=== PATIENT | male | born 1980 | race African-American/Black ===

== ENCOUNTER 2018-09-22 20:17 | Emergency (ER) | payer OTHER ==
--- NOTE | 2018-09-22 20:42 | ERPHSYRPT ---
- History of Present Illness Time Seen by Provider: 09/22/18 20:39 Historian: patient, family Exam Limitations: no limitations Patient Subjective Stated Complaint: Dizzness Triage Nursing Assessment: Patient ambulated back to ED and transferred self to bed. Patient A+O X 3. Patient's skin warm and dry. 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 Patient states he just doesn't feel well. Patient denies pain or discomfort. Pupils PERRL. Lungs clear a/p ruddy. Heart tones audible. Patient complains of nausea, but denies vomiting. Physician History: pt has epigastric distress and dizziness from no cause today and feels bad with nausea - has elevated ST which is likely early repol , but concerning with history; no trauma , no prior CAD; Timing/Duration: today Activities at Onset: none Location: substernal, epigastric Chest Pain Radiation: no radiation Severity of Pain-Max: moderate Severity of Pain-Current: moderate Modifying Factors: Improves With: nothing Associated Symptoms: nausea, vomiting, heartburn Prior Chest Pain/Cardiac Workup: no prior chest pain Nitro Today/Relief: 0.4 mg x 1, provided by ED Aspirin Treatment Today: 81 mg x 4 Allergies/Adverse Reactions: No Known Drug Allergies Allergy (Verified 09/22/18 20:22) Home Medications: No Home Meds [No Home Meds] 1 [facility]I 04/03/14 [History] Hx Tetanus, Diphtheria Vaccination/Date Given: No Hx Influenza Vaccination/Date Given: No Hx Pneumococcal Vaccination/Date Given: No Immunizations Up to Date: Yes - Review of Systems Constitutional: No Fever, No Chills Eyes: No Symptoms Ears, Nose, & Throat: No Symptoms Respiratory: No Cough, No Dyspnea Cardiac: Chest Pain, No Edema, No Syncope Abdominal/Gastrointestinal: Nausea, No Abdominal Pain, No Vomiting, No Diarrhea Genitourinary Symptoms: No Dysuria Musculoskeletal: No Back Pain, No Neck Pain Skin: No Rash Neurological: No Dizziness, No Focal Weakness, No Sensory Changes Psychological: No Symptoms Endocrine: No Symptoms All Other Systems: Reviewed and Negative - Past Medical History Pertinent Past Medical History: No Neurological History: No Pertinent History ENT History: No Pertinent History Cardiac History: No Pertinent History Respiratory History: No Pertinent History Endocrine Medical History: No Pertinent History Musculoskeletal History: No Pertinent History GI Medical History: No Pertinent History History: No Pertinent History Psycho-Social History: No Pertinent History Male Reproductive Disorders: No Pertinent History Other Medical History: toothaches - Past Surgical History Past Surgical History: No Neuro Surgical History: No Pertinent History Cardiac: No Pertinent History Respiratory: No Pertinent History Gastrointestinal: No Pertinent History Genitourinary: No Pertinent History Musculoskeletal: No Pertinent History Male Surgical History: No Pertinent History - Social History Smoking Status: Current every day smoker How long have you smoked: years Exposure to second hand smoke: Yes Drug Use: marijuana Patient Lives Alone: No - Nursing Vital Signs Nursing Vital Signs: Initial Vital Signs Temperature 98.2 F 09/22/18 20:23 Pulse Rate 64 09/22/18 20:23 Respiratory Rate 18 09/22/18 20:23 Blood Pressure 143/95 09/22/18 20:23 O2 Sat by Pulse Oximetry 100 09/22/18 20:23 Pain Scale Pain Intensity 0 - Physical Exam General Appearance: no apparent distress, alert Eye Exam: PERRL/EOMI, eyes nml inspection Ears, Nose, Throat Exam: normal ENT inspection, moist mucous membranes Neck Exam: normal inspection, non-tender, supple, full range of motion Respiratory Exam: normal breath sounds, lungs clear, No respiratory distress Cardiovascular Exam: regular rate/rhythm, normal heart sounds Gastrointestinal/Abdomen Exam: soft, No tenderness, No mass Back Exam: normal inspection, No CVA tenderness, No vertebral tenderness Extremity Exam: normal inspection, normal range of motion Neurologic Exam: alert, oriented x 3, cooperative, normal mood/affect, sensation nml, No motor deficits Skin Exam: normal color, warm, dry SpO2: 100 - Course Nursing assessment & vital signs reviewed: Yes EKG Interpreted by Me: Sinus Rhythm, NORMAL AXIS, Non-specific ST Changes Ordered Tests: Active Orders 24 hr Category Date Time Status Geodetic Advisor STAT Care 09/22/18 20:44 Active EKG-ER Only STAT Care 09/22/18 20:43 Active IV Insertion STAT Care 09/22/18 20:43 Active Pulse Oximetry (ED) STAT Care 09/22/18 20:43 Active CHEST 1 VIEW (PORTABLE) Stat Exams 09/22/18 20:44 Taken CHEST WITH CONTRAST [CT] Stat Exams 09/22/18 21:30 Ordered AMYLASE Stat Lab 09/22/18 21:11 Completed CBC W DIFF Stat Lab 09/22/18 21:11 Completed CMP Stat Lab 09/22/18 21:11 Completed D-DIMER QUANTITATION Stat Lab 09/22/18 21:11 Completed LIPASE Stat Lab 09/22/18 21:11 Completed Lactic Acid Stat Lab 09/22/18 21:13 Completed Manual Differential NC Stat Lab 09/22/18 21:11 Completed NT PRO BNP Stat Lab 09/22/18 21:11 Completed TROPONIN Q3H Lab 09/22/18 21:11 Received TROPONIN Q3H Lab 09/22/18 23:45 Ordered TROPONIN Q3H Lab 09/23/18 02:45 Ordered TROPONIN Q3H Lab 09/23/18 05:45 Ordered TROPONIN Q3H Lab 09/23/18 08:45 Ordered UA W/RFX UR CULTURE Stat Lab 09/22/18 20:43 Uncollected Medication Summary Generic Name Dose Route Start Last Admin Trade Name Freq PRN Reason Stop Dose Admin Sodium Chloride 1,000 mls @ 100 mls/hr 09/22/18 20:45 09/22/18 20:57 Sodium Chloride 0.9% 1000 Ml IV 10/22/18 20:44 100 mls/hr .Q10H KEENA Administration Discontinued Medications Generic Name Dose Route Start Last Admin Trade Name Freq PRN Reason Stop Dose Admin Aspirin 324 mg 09/22/18 20:43 09/22/18 20:54 Baby Aspirin 81 Mg Chew PO 09/22/18 20:44 324 mg STAT ONE Administration Aspirin Confirm 09/22/18 20:53 Baby Aspirin 81 Mg Chew Administered 09/22/18 20:54 Dose 324 mg .ROUTE .STK-MED ONE Nitroglycerin 0.4 mg 09/22/18 20:43 09/22/18 20:55 Nitrostat 0.4 Mg (Ed) SL 09/22/18 20:44 0.4 mg STAT ONE Administration Nitroglycerin Confirm 09/22/18 20:53 Nitrostat 0.4 Mg (Ed) Administered 09/22/18 20:54 Dose 0.4 mg SL .STK-MED ONE Ondansetron HCl 4 mg 09/22/18 20:47 09/22/18 20:55 Zofran 4 Mg/2 Ml Vial IV 09/22/18 20:48 4 mg STAT ONE Administration Ondansetron HCl Confirm 09/22/18 20:53 Zofran 4 Mg/2 Ml Vial Administered 09/22/18 20:54 Dose 4 mg .ROUTE .STK-MED ONE Lab/Rad Data: Laboratory Result Diagrams 09/22/18 21:11 09/22/18 21:11 Laboratory Results 09/22/18 09/22/18 09/22/18 Range/Units 21:13 21:11 21:11 WBC (4.0-10.5) K/mm3 RBC (4.1-5.6) M/mm3 Hgb (12.5-18.0) gm/dl Hct (42-50) % MCV (78-100) fl MCH (26-32) pg MCHC (32-36) g/dl RDW (11.5-14.0) % Plt Count (150-450) K/mm3 MPV (6-9.5) fl D-Dimer 897 H* (215-500) ng/mL Sodium 139 (137-145) mmol/L Potassium 4.1 (3.5-5.1) mmol/L Chloride 102 (98-107) mmol/L Carbon Dioxide 29 (22-30) mmol/L Anion Gap 12.3 (5-15) MEQ/L BUN 11 (9-20) mg/dL Creatinine 0.82 (0.66-1.25) mg/dL Estimated GFR > 60.0 ML/MIN Glucose 85 (74-106) mg/dL Lactic Acid 1.2 (0.4-2.0) Calcium 8.7 (8.4-10.2) mg/dL Total Bilirubin 0.60 (0.2-1.3) mg/dL AST 479 H (17-59) U/L ALT 386 H (0-50) U/L Alkaline Phosphatase 140 H (38-126) U/L NT-Pro-B Natriuret Pep 41.2 (0-450) pg/mL Serum Total Protein 7.7 (6.3-8.2) g/dL Albumin 4.0 (3.5-5.0) g/dL Amylase 97 (30-110) U/L Lipase 61 (23-300) U/L 09/22/18 Range/Units 21:11 WBC 4.5 (4.0-10.5) K/mm3 RBC 4.95 (4.1-5.6) M/mm3 Hgb 14.6 (12.5-18.0) gm/dl Hct 43.4 (42-50) % MCV 87.7 (78-100) fl MCH 29.5 (26-32) pg MCHC 33.6 (32-36) g/dl RDW 13.4 (11.5-14.0) % Plt Count 246 (150-450) K/mm3 MPV 9.9 H (6-9.5) fl D-Dimer (215-500) ng/mL Sodium (137-145) mmol/L Potassium (3.5-5.1) mmol/L Chloride (98-107) mmol/L Carbon Dioxide (22-30) mmol/L Anion Gap (5-15) MEQ/L BUN (9-20) mg/dL Creatinine (0.66-1.25) mg/dL Estimated GFR ML/MIN Glucose (74-106) mg/dL Lactic Acid (0.4-2.0) Calcium (8.4-10.2) mg/dL Total Bilirubin (0.2-1.3) mg/dL AST (17-59) U/L ALT (0-50) U/L Alkaline Phosphatase (38-126) U/L NT-Pro-B Natriuret Pep (0-450) pg/mL Serum Total Protein (6.3-8.2) g/dL Albumin (3.5-5.0) g/dL Amylase (30-110) U/L Lipase (23-300) U/L - Progress Progress: improved, re-examined Air Movement: good Progress Note: 09/22/18 20:52 symptoms improved after 1 nitro 09/22/18 21:[address] Goins at [facility] and sent EKG for his review adn he agrees appears most consistnet with early repol at this time. 09/22/18 21:44 trop turned positive adn discussed with [facility] and they accept in transfer Blood Culture(s) Obtained: No Antibiotics given: No Counseled pt/family regarding: lab results, diagnosis, need for follow-up, rad results - Departure Departure Disposition: Transfer Clinical Impression: chest pain with elevated trop and d dime Condition: Good Critical Care Time: Yes Critical Care Time(excluding separately billable procedures): 30-74 minutes ( consult to solar installer technician for st seg review , nitro and cardiac transport) Referrals: ANDREINA ZARAGOZA [ACTIVE STAFF] -
[2018-09-22] MEDS ORDERED: BABY ASPIRIN 81 MG CHEW ONE (20:53)
[2018-09-22] MEDS ORDERED: Zofran 4 MG/2 ML VIAL ONE (20:53)
[2018-09-22] MEDS ORDERED: Sodium Chloride 0.9% 1000 ML 1,000 ML ONE (20:53)
[2018-09-22] MEDS ORDERED: Nitrostat 0.4 MG (ED) SL ONE (20:53)
[2018-09-22] MEDS: BABY ASPIRIN 81 MG CHEW PO ONE (20:54)
[2018-09-22] MEDS: Zofran 4 MG/2 ML VIAL IV ONE (20:55)
[2018-09-22] MEDS: Nitrostat 0.4 MG (ED) SL ONE (20:55)
[2018-09-22 20:57] LABS: Hematocrit 43.4 % (42-50); Hemoglobin 14.6 gm/dl (12.5-18.0); Mean Cell Volume 87.7 fl (78-100); Mean Corpuscular Hemoglobin 29.5 pg (26-32); Mean Corpuscular Hgb Concent. 33.6 g/dl (32-36); Mean Platelet Volume 9.9 fl (6-9.5); Platelet Count 246 K/mm3 (150-450); Red Blood Count 4.95 M/mm3 (4.1-5.6); Red Cell Distribution Width 13.4 % (11.5-14.0); White Blood Count 4.5 K/mm3 (4.0-10.5)
[2018-09-22] MEDS: Sodium Chloride 0.9% 1000 ML 1,000 ML IV SCH (20:57)
[2018-09-22 21:29] LABS: ALKALINE PHOSPHATASE 140 U/L (38-126); AMYLASE 97 U/L (30-110); ANION GAP 12.3 MEQ/L (5-15); BLOOD UREA NITROGEN 11 mg/dL (9-20); CHLORIDE 102 mmol/L (98-107); Calcium 8.7 mg/dL (8.4-10.2); Carbon Dioxide 29 mmol/L (22-30); Creatinine 1 0.82 mg/dL (0.66-1.25); Glucose 85 mg/dL (74-106); LIPASE 61 U/L (23-300); NT PRO BNP 41.2 pg/mL (0-450); Potassium 4.1 mmol/L (3.5-5.1); SGOT/AST 479 U/L (17-59); SGPT/ALT 386 U/L (0-50); SODIUM 139 mmol/L (137-145); Total Protein 7.7 g/dL (6.3-8.2)
[2018-09-22 21:42] VITALS: BP 130/76; PULSE 67
[2018-09-22 21:45] VITALS: O2SAT 100
[2018-09-23 02:08] LABS: Eosinophil 1 % (0.00-3.0); Lymphocytes 37 % (24-44); Monocyte 11 % (0.0-12.0); Neutrophils 51 % (36.-66.); Platelet Estimate NORMAL (NORMAL); Total Cells Counted 100
--- NOTE | 2018-09-23 07:59 | XRAY ---
Indication: Chest pain. Comparison: December 15, 2008. Portable apical lordotic chest again demonstrates normal heart, lungs, and bony thorax.
== END 2018-09-22 22:34 | disposition short-term general hospital (02) ==
LOC: ED 20:17
DX: R07.9 Chest pain, unspecified (principal); R74.8 Abnormal levels of other serum enzymes
CPT/HCPCS: 36000; 36415; 71045; 80053; 82150; 83605; 83690; 83880; 84484; 85025; 85379; 93005; 93041; 96360; 96374; 99285; J2405; A9270-GY

== ENCOUNTER 2019-01-29 17:58 | Emergency (ER) | payer MEDICAID, OTHER ==
[2019-01-29] MEDS ORDERED: TORAdol 30 mg Injection IM ONE (18:14)
[2019-01-29] MEDS ORDERED: TORAdol 30 mg Injection ONE (18:15)
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
[2019-01-29] MEDS ORDERED: BACIGUENT PACKET TP ONE (19:26)
[2019-01-29 19:38] VITALS: BP 149/98; PULSE 87; O2SAT 98
--- NOTE | 2019-01-30 08:38 | XRAY ---
Indication: Pain following fall. Comparison: None 3 views of the left hand obtained. No bony, articular, or soft tissue abnormalities.
== END 2019-01-29 19:45 | disposition home or self-care (01) ==
LOC: ED 17:58
DX: S63.259A Unspecified dislocation of unspecified finger, initial encounter (principal); S60.512A Abrasion of left hand, initial encounter; S80.812A Abrasion, left lower leg, initial encounter; M79.645 Pain in left finger(s); V89.1XXA Person injured in unspecified nonmotor-vehicle accident, nontraffic, initial encounter; Y93.55 Activity, bike riding; Y92.89 Other specified places as the place of occurrence of the external cause
CPT/HCPCS: 26700; 73130; 96372; 99284; A4570; J1885; A9270-GY